=== PATIENT | female | born 1985 | race Caucasian/White ===

== ENCOUNTER 2021-12-05 07:25 | Inpatient (IN) ==
[2021-12-05] MEDS ORDERED: OXYTOCIN 30 UNITS/500 ML BAG IV PRN ×3 (07:32→14:16)
[2021-12-05] MEDS ORDERED: LACTATED RINGER'S 1,000 ML IV PRN (07:32)
[2021-12-05 07:55] LABS: Hematocrit (blood only) 37.9 % (37-47); Hemoglobin 12.5 g/dL (12.0-16.0); Mean Corpuscular Hemoglobin 32.5 pg (25-34); Mean Corpuscular Volume 98.4 fL (80-100); Mean Platelet Volume 11.3 fL (7.4-10.4); Platelet Count 240 K/uL (130-400); RDW Coefficient of Variation 13.6 % (11.5-14.5); RDW Standard Deviation 48.7 fL (36.4-46.3); Red Blood Count 3.85 M/uL (4.2-5.4); White Blood Count 10.48 K/uL (4.8-10.8)
--- NOTE | 2021-12-05 08:11 | History & Physical Report ---
Date of Service December 05, 2021 Assessment & Plan (1) Encounter for induction of labor: (2) Supervision of elderly multigravida: Plan: admit, iv, labs. covid test pending. start pitocin. fhts categ 1. pt does not plan epidural, history of spinal cord clot noted, may want to alert anesth, will d/w admitting provider. Admission and Anticipated Discharge Date Admission Date: December 05, 2021 History of Present Illness Chief Complaint: induction Primary Care Provider: NO PCP 36yo at 40+wks tahir presents to L&D with cc of planned induction for postdates. Had ripening balloon overnight and it did not fall out. She denies ctx, rom. Reports small amount of bleeding-brown, +FM PNC c/b 1. ama 2. 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 Surgical History S/P wisdom tooth extraction Family History (Updated 12/05/21 @ 07:45 by Erika Longoria RN) Sister Clotting disorder MTHFR Myocardial infarction Father Myocardial infarction Grandfather (Maternal) Cancer Grandmother (Maternal) Cancer Other Diabetes Dyslipidemia Heart disease Social History (Updated 04/18/21 @ 11:10 by Leigh Pierson) Smoking Status: Never smoker Second Hand Exposure: No; Hx Alcohol Use: No Hx Substance Use: No Preferred Language: Telugu Communication Ability: Effective Flakeboard Line Tender Required: No Beliefs That Will Affect Care: None marital status: marital status details: Marbin (48) [phone] Current Living Situation: Family Current Living Situation Comment: spouse and 2 daughters (12 and 17 y/o) current occupational status: employed current occupation: client services [employer] Other Information That Helps Us Care for You: No Feels Safe at Home: Yes Safety Concerns: Feels Safe At This Time Assistive Devices: Glasses Assistive Devices Comment: for distance Review of Systems as per Subjective / HPI Physical Exam Constitutional: WD/WN, vitals as above Respiratory: normal respiratory effort, lungs clear to auscultation Cardiovascular: Rate/Rhythm: regular rate and regular rhythm Gastrointestinal (Abdomen): soft gravid nt Musculoskeletal: no edema nontender calves Neurologic: grossly normal Psychiatric: A+Ox3, euthymic affect Genitourinary: OB Exam Abdomen: + estimated weight (7-8#) Manual OB Exam: + cervical dilation (3-4), + cervical effacement 50% and + station -2 OB Exam Monitor Tracing: + external FHT monitor used, + external uterine monitor used (irreg), + category I and + normal FHT variability Results & Data ([facility]) Vital Signs (Past 12 Hours) Vital Signs Pulse BP 12/05/21 07:35 88 112/76 Code Status & VTE Plan VTE Prophylaxis Plan VTE Prophylaxis will be ordered: No Coding Level of Care Code None Diagnoses Encounter for induction of labor Z34.90 Supervision of elderly multigravida O09.529
--- NOTE | 2021-12-05 14:14 | Delivery Summary ---
Vaginal Delivery Summary Date of Service December 05, 2021 Vaginal Delivery Summary Patient was induced for postdates this is her third baby she was past 40 weeks group B strep negative COVID-negative she was given a cervical Melendrez the night before Pitocin was started artificial rupture of membranes was performed for clear fluid she rapidly progressed to fully dilated and pushed over 1 contraction delivering a baby in occiput anterior position there was a loose nuchal cord passed over the head fluid was clear gentle traction no excessive force live vigorous male cord clamped and cut cord blood obtained placenta removed with gentle traction IV Pitocin started there was no tearing sponge instrument counts correct estimated blood loss 200 mL
[2021-12-05] MEDS ORDERED: ACETAMINOPHEN 325 MG TAB PO PRN (14:16)
[2021-12-05] MEDS ORDERED: bisacodyL 10 MG SUPP PR PRN (14:16)
[2021-12-05] MEDS ORDERED: HYDROCORTISONE ACETATE 25 MG SUPP PR PRN (14:16)
[2021-12-05] MEDS ORDERED: BENZOCAINE 20% AER SPR 82.5 GM CAN EXT PRN (14:16)
[2021-12-05] MEDS ORDERED: DIPHTHERIA/TETANUS/PERTUSSIS 0.5 ML SYR/VIAL IM ONE (14:16)
[2021-12-05] MEDS ORDERED: oxyCODONE/ACETAMINOPHEN 5mg/325mg TAB PO PRN (14:16)
[2021-12-05] MEDS: IBUPROFEN 600 MG TAB PO PRN (17:01)
[2021-12-05] MEDS: DOCUSATE SODIUM 100 MG CAP PO SCH (20:47)
[2021-12-06] MEDS: IBUPROFEN 600 MG TAB PO PRN ×2 (06:45→11:32)
[2021-12-06 07:16] LABS: Hematocrit (blood only) 34.5 % (37-47); Hemoglobin 11.3 g/dL (12.0-16.0); Mean Corpuscular Hemoglobin 31.7 pg (25-34); Mean Corpuscular Hgb Conc 32.8 g/dL (32-36); Mean Corpuscular Volume 96.6 fL (80-100); Mean Platelet Volume 11.5 fL (7.4-10.4); Platelet Count 228 K/uL (130-400); RDW Coefficient of Variation 13.6 % (11.5-14.5); RDW Standard Deviation 48.2 fL (36.4-46.3); Red Blood Count 3.57 M/uL (4.2-5.4)
--- NOTE | 2021-12-06 07:30 | Obstetrical Progress Note ---
Date of Service December 06, 2021 Assessment & Plan (1) state: PPD 1 well, no ext pain Subjective Ambulation: ambulating normally Voiding: no voiding problems Passing Gas:: Yes Diet Tolerance:: regular diet Results & Data ([facility]) Vital Signs (Past 12 Hours) Vital Signs Temp Pulse Pulse Resp BP BP Pulse Ox 12/06/21 04:30 98.1 F 83 16 118/73 12/05/21 23:30 98.1 F 86 86 18 116/62 116/62 12/05/21 21:30 98.1 F 67 20 109/71 97
[2021-12-06] MEDS ORDERED: PRENATAL VITAMIN 1 TAB PO SCH (08:00)
[2021-12-06] MEDS: DOCUSATE SODIUM 100 MG CAP PO SCH (08:45)
[2021-12-06] MEDS ORDERED: bisacodyL 5 MG TABEC PO SCH (20:00)
== END 2021-12-06 16:30 | disposition home or self-care (01) | DRG 807 ==
LOC: 4S1 07:25 → 4E2 17:13